=== PATIENT | male | born 1960 | race Caucasian/White ===

== ENCOUNTER 2025-02-08 05:54 | Observation (INO) ==
--- NOTE | 2025-01-10 10:43 | PAT Medication Instructions ---
Medication Instructions Date of Service January 10, 2025 Home Medications allopurinol 100 mg tablet 100 mg PO QAM apixaban 5 mg tablet 5 mg PO BID azelastine 205.5 mcg (0.15 %) nasal spray 1 spray intranasal DAILY celecoxib 200 mg capsule (Celebrex) 200 mg PO BID cyclobenzaprine 10 mg tablet 10 mg PO TID PRN muscle spasms diltiazem HCl 120 mg tablet 120 mg PO QAM duloxetine 60 mg capsule,delayed release 60 mg PO QAM gabapentin 300 mg capsule 300 mg PO BID hydrochlorothiazide 25 mg tablet 25 mg PO QAM hydrocortisone 1 % topical cream 1 applic topical BID levocetirizine 5 mg tablet 5 mg PO HS metformin 500 mg tablet 500 mg PO QAM olanzapine 2.5 mg tablet 2.5 mg PO HS olmesartan 40 mg tablet 40 mg PO QAM omeprazole 40 mg capsule,delayed release 40 mg PO QAM polyethylene glycol 3350 17 gram/dose oral powder (Miralax) 17 g PO DAILY PRN Constipation rosuvastatin 20 mg tablet 20 mg PO QAM semaglutide 1 mg/dose (4 mg/3 mL) subcutaneous pen injector 1 mg subcut Q7D tramadol 50 mg tablet 50 mg PO Q6H PRN Pain triamcinolone acetonide 0.1 % topical cream 1 applic topical DAILY PRN Skin Irritation ubrogepant 100 mg tablet (Ubrelvy) 100 mg PO UD PRN migraines ASK your surgeon for instructions celecoxib 200 mg capsule (Celebrex) 200 mg PO BID ASK your prescriber and surgeon apixaban 5 mg tablet 5 mg PO BID STOP 7 days prior to surgery semaglutide 1 mg/dose (4 mg/3 mL) subcutaneous pen injector 1 mg subcut Q7D STOP taking 24 hours before surgery hydrocortisone 1 % topical cream 1 applic topical BID triamcinolone acetonide 0.1 % topical cream 1 applic topical DAILY PRN Skin Irritation DO NOT take the morning of surgery hydrochlorothiazide 25 mg tablet 25 mg PO QAM metformin 500 mg tablet 500 mg PO QAM olmesartan 40 mg tablet 40 mg PO QAM polyethylene glycol 3350 17 gram/dose oral powder (Miralax) 17 g PO DAILY PRN Constipation Take morning of surgery With a small sip of water, OTHERWISE NOTHING TO EAT OR DRINK AFTER MIDNIGHT: allopurinol 100 mg tablet 100 mg PO QAM azelastine 205.5 mcg (0.15 %) nasal spray 1 spray intranasal DAILY cyclobenzaprine 10 mg tablet 10 mg PO TID PRN muscle spasms (if needed) diltiazem HCl 120 mg tablet 120 mg PO QAM duloxetine 60 mg capsule,delayed release 60 mg PO QAM gabapentin 300 mg capsule 300 mg PO BID omeprazole 40 mg capsule,delayed release 40 mg PO QAM rosuvastatin 20 mg tablet 20 mg PO QAM tramadol 50 mg tablet 50 mg PO Q6H PRN Pain (if needed) ubrogepant 100 mg tablet (Ubrelvy) 100 mg PO UD PRN migraines (if needed) Take evening before surgery cyclobenzaprine 10 mg tablet 10 mg PO TID PRN muscle spasms (if needed) gabapentin 300 mg capsule 300 mg PO BID levocetirizine 5 mg tablet 5 mg PO HS olanzapine 2.5 mg tablet 2.5 mg PO HS polyethylene glycol 3350 17 gram/dose oral powder (Miralax) 17 g PO DAILY PRN Constipation (if needed) tramadol 50 mg tablet 50 mg PO Q6H PRN Pain (if needed) ubrogepant 100 mg tablet (Ubrelvy) 100 mg PO UD PRN migraines (if needed) Other Notes If you have any questions please call us at [phone] or [phone] or [phone] or [phone]
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
[2025-02-08] MEDS: VANCOMYCIN HCL 2,000 MG in SODIUM CHLORIDE 0.9% 500 ML IV SCH (06:35)
[2025-02-08] MEDS: LACTATED RINGER'S 1,000 ML IV SCH (06:37)
[2025-02-08] MEDS: LR 60ML/HR IV SCH (06:37)
[2025-02-08] MEDS: GABAPENTIN 300 MG CAP PO SCH ×2 (06:38→20:16)
[2025-02-08] MEDS: ACETAMINOPHEN 500 MG TAB PO SCH (06:38)
[2025-02-08] MEDS: CeleBREX 200 MG CAP PO SCH (06:38)
[2025-02-08] MEDS ORDERED: ONDANSETRON INJ 2 MG/ML 2 ML VIAL ONE ×2 (08:39→09:51)
[2025-02-08] MEDS ORDERED: ATROPINE SULFATE 0.1 MG/ML 10ML SYR IV PRN (08:39)
[2025-02-08] MEDS ORDERED: DEXAMETHASONE SOD INJ 4 MG/ML VIAL ONE ×2 (08:39→08:43)
[2025-02-08] MEDS ORDERED: PROMETHAZINE HCL 6.25 MG in SODIUM CHLORIDE 0.9% 50 ML IV PRN (08:39)
[2025-02-08] MEDS ORDERED: LIDOCAINE 2% 2 ML VIAL/AMP(20MG/ML) INFIL ONE (08:39)
[2025-02-08] MEDS ORDERED: PROPOFOL IV EMULSION 10 MG/ML 20 ML VIAL IV ONE ×2 (08:39→08:43)
[2025-02-08] MEDS ORDERED: DROPERIDOL 5 MG/2 ML VIAL IV PRN (08:39)
[2025-02-08] MEDS ORDERED: ROCURONIUM BROMIDE 10 MG/ML 5 ML VIAL IV ONE (08:40)
[2025-02-08] MEDS ORDERED: HYDROmorphone INJ 2 MG/ML SYR/VIAL ONE (08:40)
[2025-02-08] MEDS ORDERED: MIDAZOLAM HCL 1 MG/ML 2ML VIAL ONE (08:40)
[2025-02-08] MEDS ORDERED: LARYING-O-JET KIT (LTA) ONE (08:40)
--- NOTE | 2025-02-08 08:55 | History & Physical Bridge Note ---
Date of Service February 08, 2025 History & Physical Bridge Note I have examined the patient, reviewed the History & Physical and in the interval since the performance of the History & Physical I have noted the following changes of clinical significance: no changes noted
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
[2025-02-08] MEDS: NovoLIN-R INSULIN PER UNIT CHARGE SC STA (09:04)
[2025-02-08] MEDS ORDERED: PHENYLEPHRINE 100MCG/ML 5ML SYR ONE (09:41)
[2025-02-08] MEDS: ceFAZolin 330 MG/ML 1 GM VIAL ONE ×2 (09:44→15:12)
[2025-02-08] MEDS: BUPIVACAINE/EPINEPHRINE 0.25% 1:200,000 30 ML VIAL ONE (09:45)
[2025-02-08] MEDS ORDERED: SUGAMMADEX SODIUM 200 MG/2 ML VIAL IV ONE (09:47)
[2025-02-08] MEDS ORDERED: ePHEDrine sulfate 50 MG/5 ML SYR ONE (10:03)
[2025-02-08] MEDS ORDERED: PHENYLEPHRINE HCL 10 MG/ML VIAL ONE (10:13)
--- NOTE | 2025-02-08 11:38 | Operative Report ---
Post Operative Report Pre & Post Diagnosis Operation Date: 02/08/25 09:05 Pre-Op Diagnosis: #1 lumbar spondylosis with radiculopathy #2 lumbar spinal stenosis #3 obesity Post-Op Diagnosis: Same I identified the patient and participated in the time-out.: Yes Procedure Operation Date: 02/08/25 09:05 Actual Procedures #1 lumbar decompression with bilateral medial facetectomies and foraminotomies L3-L4, L4-5 and L5-S1. #2 posterior spinal fusion L4-S1. #3 placed posterior instrumentation L4-S1 using Duncan. #4 interbody fusion L4-L5 L5-S1. #5 placem ent Spira 12 x 26 mm x 2 at L4-5 and 13 x 26 mm x 2 at L5-S1. #6 placement Koros, with Proteus bone graft to posterior gutters and os design interbody space. #7 application of versa wrap of the exposed dura. Surgeon Gordon Kumar, DO [employer] Cecilia Preston Estimated Blood Loss 400 Findings See Below The patient is 6 feet tall weighing over 131 kg with a BMI in excess of 39. Patient's body habitus did contribute to significant technical difficulty with positioning exposure and the procedure itself. This added at least 40% increased operative time. And recommending a modifier 22. Specimens None Indications This is a 64-year-old male who presents manage diagnosis is of increasing nonoperative care is here for surgical invention. Description of Procedure Patient was met with identified informed consent obtained. Patient was then taken to the operative suite underwent the patient placed in a prone position on the Rommel table atop the Wil frame. All bony promises well-padded eyes inspected to ensure no external pressure placed upon them. This point lumbar spine was prepped and draped in normal sterile fashion. Sharp dissection with the assistance of Bovie cautery was formed down to and exposing the lamina transverse processes of L for L5 and the sacral ala bilaterally. From caudal to cephalad fashion complete laminectomy of L5 was performed with bilateral medial facetectomies and foraminotomies followed by a complete laminectomy of L4 with bilateral medial facetectomies and foraminotomies and lastly partial laminectomy L3 with bilateral medial facetectomies to address all subarticular stenosis. Pedicle screws were then placed in L4-L5 and S1 levels bilaterally with assistance of fluoroscopy and appropriate size rods placed. By way of transforaminal approach on the left I discectomy of L5-S1 was performed endplates corrected to subcortical bleeding bone and a 13 x 26 mm Spira cage tapped into position. Then proceeded to the right transforaminal region L5-S1. Again discectomy performed. Endplates guided to subcortical bleeding bone. A second 13 x 26 mm Spira cage tapped into position. Number seated L4-[address] transforaminal approach and right a discectomy was performed. Endplates guided to subcortically bone and a 12 x 26 mm Spira cage tapped into position. Then proceeded to the left transforaminal region at L4-5. Again discectomy performed. Endplates curetted to subcortical bleeding bone and a second 12 x 26 mm Spira cage tapped in position. Please note all cages were packed with os design bone graft. The rods were then compressed locked into final position bilaterally. The transverse processes of L 4 L5 and the sacral ala burred to subcortically bone. Koros combined with Proteus bone graft was placed in the posterolateral gutters. Versa wrap placed of exposed dura. 15 round JULI drain inserted. The incision was then closed with 1 Vicryl fascia 2-0 Vicryl subcutaneously and 4-0 Monocryl for final skin closure. Steri-Strips and sterile dressing placed. Patient waken taken PACU stable condition. Please note Cecilia Preston was present of the entire procedure involved with patient positioning complex portions of the surgery and final skin closure. I attest to the content of the Intraoperative Record and any orders documented therein. Any exceptions are noted below.
[2025-02-08] MEDS: HYDROmorphone INJ 2 MG/ML SYR/VIAL IV PRN (12:36)
--- NOTE | 2025-02-08 13:45 | Fluoroscopy Report ---
INTRAOPERATIVE RADIOGRAPHS CLINICAL HISTORY: Lumbar spinal fusion surgery. Fluoro time: 16 seconds Ka,r: 16.23 mGy FINDINGS: 2 spot fluoroscopic views of the lumbar spine are presented. There has been discectomy at L 4-L5 and L5-S1 with laminectomy and posterior fusion at L4-S1. Interpedicular screws are present at a ll levels. The orthopedic hardware appears intact. IMPRESSION: Intraoperative images from lumbar spinal fusion surgery as above. Electronically signed by: Angel Schwartz M.D. 02/08/2025 1:44 PM
--- NOTE | 2025-02-08 14:58 | Anesthesiology Progress Note ---
Date of Service February 08, 2025 Anesthesia Post Procedure Vital Signs Vital Signs: Temp Pulse Pulse Resp BP Pulse Ox O2 Del Method 02/08/25 14:40 77 12 141/60 H 96 Nasal Cannula 02/08/25 14:10 76 13 139/70 95 Nasal Cannula 02/08/25 13:40 69 12 135/71 94 Nasal Cannula 02/08/25 13:25 74 12 122/73 95 Nasal Cannula 02/08/25 13:10 71 12 136/70 94 Nasal Cannula 02/08/25 12:55 71 12 134/71 98 Nasal Cannula 02/08/25 12:40 70 12 142/72 H 96 Nasal Cannula 02/08/25 12:30 36.4 C L 74 12 133/79 96 Nasal Cannula 02/08/25 12:20 76 12 157/80 H 94 Nasal Cannula 02/08/25 12:10 73 12 160/78 H 100 Oxymask 02/08/25 12:00 67 12 145/78 H 99 Oxymask 02/08/25 11:50 36.4 C L 70 16 150/81 H 99 Oxymask 02/08/25 06:10 36.9 C 76 20 148/91 H 96 Room Air O2 Flow Rate 02/08/25 14:40 2 02/08/25 14:10 2 02/08/25 13:40 2 02/08/25 13:25 2 02/08/25 13:10 2 02/08/25 12:55 2 02/08/25 12:40 2 02/08/25 12:30 2 02/08/25 12:20 2 02/08/25 12:10 9 02/08/25 12:00 9 02/08/25 11:50 9 02/08/25 06:10 Pain Intensity Back: Pain Intensity: 2 Transfer of Care Handoff Completed per policy Notes Mental Status: alert / awake / arousable and participated in evaluation Nausea / Vomiting: adequately controlled Pain: adequately controlled Airway Patency, RR, SpO2: stable & adequate BP & HR: stable & adequate Hydration State: stable & adequate Anesthetic Complications: no major complications apparent and Pt Satisfied with anesthetic care
[2025-02-08] MEDS ORDERED: FAMOTIDINE 20 MG TAB PO PRN (15:00)
[2025-02-08] MEDS ORDERED: ACETAMINOPHEN 1,000 MG/100 ML VIAL IV PRN (15:00)
[2025-02-08] MEDS ORDERED: LORazepam 0.5 MG TAB PO PRN (15:00)
[2025-02-08] MEDS ORDERED: ONDANSETRON 4 MG OD TAB PO PRN (15:00)
[2025-02-08] MEDS ORDERED: LORazepam Inj 0.5 MG in SYRINGE 0.25 ML IV PRN (15:00)
[2025-02-08] MEDS ORDERED: HYDROmorphone INJ 0.5 MG/0.5 ML SYR IV PRN (15:00)
[2025-02-08] MEDS ORDERED: ONDANSETRON INJ 2 MG/ML 2 ML VIAL IV PRN (15:00)
[2025-02-08] MEDS ORDERED: PROMETHAZINE 12.5 MG/50.5 ML BAG IV PRN (15:00)
[2025-02-08] MEDS ORDERED: PHARMACY GLYCEMIC MGMT CONSULT PRN (15:00)
[2025-02-08] MEDS ORDERED: SOD PHOSPHATE/SOD BIPHOSPHATE ENEMA 132 ML BTL PR PRN (15:00)
[2025-02-08] MEDS ORDERED: HYDROmorphone INJ 1 MG/ML SYRINGE IV PRN (15:00)
[2025-02-08] MEDS ORDERED: ALUMINUM/MAGNESIUM SUSP 30 ML UDC PO PRN (15:00)
[2025-02-08] MEDS ORDERED: NALOXONE HCL 0.4 MG/1 ML VIAL/CARP IV PRN (15:00)
[2025-02-08] MEDS ORDERED: DO NOT ADMINISTER PNEUMOCOCCAL VACCINE PRN (15:00)
[2025-02-08] MEDS ORDERED: diphenhydrAMINE Capsule 25 MG CAP PO PRN (15:00)
[2025-02-08] MEDS ORDERED: DO NOT ADMINISTER FLU VACCINE PRN (15:00)
[2025-02-08] MEDS ORDERED: MAGNESIUM HYDROXIDE SUSP 30 ML UDC PO PRN (15:00)
[2025-02-08] MEDS ORDERED: METOCLOPRAMIDE HCL INJ 5 MG/ML 2 ML VIAL IV PRN (15:00)
[2025-02-08] MEDS: NovoLIN-R INSULIN PER UNIT CHARGE ONE (15:12)
[2025-02-08] MEDS: FLOSEAL HEMOSTATIC MATRIX 10ML TOP ONE (15:12)
[2025-02-08] MEDS: INSULIN HUMAN REGULAR PER UNIT 5 UNITS in SYRINGE 4.95 ML IV ONE (15:12)
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
[2025-02-08] MEDS: INSULIN HUMAN REGULAR PER UNIT 5 UNITS in SYRINGE 0 ML IV STA (15:25)
[2025-02-08] MEDS: SODIUM CHLORIDE 0.9% 1,000 ML IV SCH (16:44)
[2025-02-08] MEDS: ACETAMINOPHEN 500 MG TAB PO PRN (16:44)
[2025-02-08] MEDS ORDERED: ALBUTEROL 0.083% NEBU SOLN 3 ML VIAL NEB PRN (17:26)
[2025-02-08] MEDS: INSULIN ASPART PER UNIT CHARGE SC SCH (17:48)
[2025-02-08] MEDS: LANTUS PER UNIT CHARGE SC ONE ×2 (17:49→20:14)
[2025-02-08] MEDS: DOCUSATE SODIUM/SENNA 50/8.6MG TAB PO SCH (20:15)
[2025-02-08] MEDS: OLANZAPINE 2.5 MG TAB PO SCH (20:16)
[2025-02-08] MEDS: CETIRIZINE HCL 10 MG TABLET PO SCH (20:16)
[2025-02-09] MEDS: INSULIN ASPART PER UNIT CHARGE SC SCH (00:09)
[2025-02-09] MEDS: POLYETHYLENE (MIRALAX) 17 GM PACK PO SCH (05:50)
[2025-02-09 06:12] LABS: Hematocrit (blood only) 35.8 % (42.0-52.0); Hemoglobin 12.5 g/dL (14.0-18.0); Immature Granulocytes # (auto) 0.08 K/uL (0.01-0.20); Immature Granulocytes % (auto) 0.5 %; Mean Corpuscular Hemoglobin 29.1 pg (25.0-34.0); Mean Corpuscular Volume 83.3 fL (80.0-100.0); Platelet Count 230 K/uL (130-400); RDW Standard Deviation 37.4 fL (36.4-46.3); Red Blood Count 4.30 M/uL (4.70-6.10); White Blood Count 15.88 K/ul (4.8-10.8)
[2025-02-09 06:31] LABS: Anion Gap 9.0 (3-11); Blood Urea Nitrogen 21.0 mg/dl (6-23); Calcium 8.5 mg/dl (8.6-10.3); Carbon Dioxide 27.0 mmol/L (21-32); Chloride 103.0 mmol/L (98-107); Creatinine Clr Calc Pharmacy 129.1 ml/min; Glucose 201.0 mg/dl (70-99(Fasting)); Potassium 3.6 mmol/L (3.5-5.1); Sodium 139.0 mmol/L (136-145)
[2025-02-09] MEDS: LOSARTAN POTASSIUM 50 MG TAB PO SCH (08:01)
[2025-02-09] MEDS: ROSUVASTATIN CALCIUM 20 MG TAB PO SCH (08:01)
[2025-02-09] MEDS: dexAMETHasone 8 MG in SYRINGE 0 ML IV SCH (08:02)
[2025-02-09] MEDS: AZELASTINE HCL 0.1% NASAL 200 SPRAYS/27,400 MCG BTL SCH (08:04)
[2025-02-09] MEDS: LANTUS PER UNIT CHARGE SC SCH (08:05)
--- NOTE | 2025-02-09 08:33 | Orthopedic Progress Note ---
Date of Service February 09, 2025 Assessment & Plan (1) Multilevel lumbosacral spondylosis with radiculopathy: Plan: At this time we will initiate physical therapy monitor his JULI output hopefully discharge in the next few days Admission and Anticipated Discharge Date Admission Date: February 08, 2025 Subjective Patient's back pain is controlled. Patient has been to bathroom several times without issue. Physical Exam Physical Exam: Patient comfortable. Good strength testing. Results & Data Vital Signs (Past 12 Hours) Vital Signs Temp Pulse Resp BP Pulse Ox O2 Del Method 02/09/25 07:30 36.5 C 82 16 150/78 H 96 Room Air 02/09/25 03:14 36.4 C L 84 17 145/78 H 92 Room Air 02/08/25 22:33 36.5 C 80 18 136/76 93 Room Air Queries Orthopedic Spine Obesity: Yes
[2025-02-09] MEDS ORDERED: hydroCHLOROthiazide 25 MG TAB PO SCH (09:00)
--- NOTE | 2025-02-09 12:32 | Hospitalist Progress Note ---
Date of Service February 09, 2025 Assessment & Plan (1) S/P spinal surgery: (2) Multilevel lumbosacral spondylosis with radiculopathy: Plan: This is a 64-year-old male with PMH type 2 diabetes, paroxysmal atrial fibrillation on Eliquis, migraine headache dyslipidemia and other medical problems listed below who is postop day 0 decompression and fusion surgery by Dr. Kumar. Acute blood loss anemia s/p lumbar decompression with bilateral medial facetectomies and foraminotomies L3-L4, L4-5 and L5-S1 and posterior spinal fusion L4-S1.. by Dr. Kumar on 02/09/2025 Per ortho for pain control, wound care and activities Continue incentive spirometry, PT/OT when appropriate Monitor H&H (pre-op hgb 14.8, EBL 400ml). Hb of 12.5g/dl in post-op period Eliquis for A fib has been held since 02/04, resume as appropriate per ortho (3) Diabetes mellitus, type 2: Plan: A1c 8.5 in Dec 2024 Hold home agents SSI while in-patient Glycemic consult placed per primary BSG AC HS (4) Hx of migraines: Plan: Continue regimen of duloxetine, olanzapine HS. Also receives Ubrelvy and botox injections (5) Atrial fibrillation: Plan: Dx 10/2022, follows with Dr. Cricket Fernandez/[facility] cardio Eliquis held as above - resume per ortho recommendation Continue Diltiazem (6) HTN (hypertension): Plan: Normotensive post op. Continue olmesartan , hold hctz for now (7) History of asthma: Plan: Allergy-induced per patient, not taking an inhaler. Continue antihistamine, incentive spirometry. Adding PRN albuterol neb for SOB/wheezing (8) GERD (gastroesophageal reflux disease): Plan: Continue PPI (9) HLD (hyperlipidemia): Plan: Continue statin DVT Ppx: SCDs per primary service Code status: FULL PCP: [facility] Dispo: Admitted to med/surg, dispo per primary .Please note the above document was generated using voice recognition software. It may contain grammatical, syntax or spelling errors. Any formal questions or concerns about the content, text or information contained within the body of this dictation should be directly addressed to the provider for clarification Admission and Anticipated Discharge Date Admission Date: February 08, 2025 Subjective Patient seen and examined at bedside. He is sitting up on a chair at the side of the bed. Reports that he is feeling better. Denies any pain or discomfort. Review of Systems Review of Systems: All systems reviewed & are unremarkable except as noted in Subjective Physical Exam Physical Exam: General Appearance: WD/WN, vitals as above, NAD, sitting up in bedside chair, conversing easily Head: normocephalic, atraumatic Eyes: + L eye glass ENT: external ear and nose normal Neck: normal visual inspection Respiratory: normal respiratory effort, clear breath sounds Cardiovascular: RRR, normal peripheral pulses, no BLE edema Abdomen/GI: normal bowel sounds, soft, nontender Extremities/Musculoskeletal: no cyanosis or clubbing, extremities motor strength 5/5 Neurologic: CN's II-XI intact bilaterally and moves all extremities Psychiatric: A+Ox3, euthymic affect Skin: no rashes, normal color, warm/dry Results & Data Results & Data Vital Signs (Past 12 Hours) Vital Signs Temp Pulse Resp BP Pulse Ox O2 Del Method 02/09/25 07:30 36.5 C 82 16 150/78 H 96 Room Air 02/09/25 03:14 36.4 C L 84 17 145/78 H 92 Room Air
--- NOTE | 2025-02-09 13:46 | Pharmacy Report ---
Pharmacy Glycemic Short Note 2 - Date of Service February 09, 2025 - Glycemic Short BSG Results (Last 24 hours): 02/08/25 02/08/25 02/08/25 16:34 19:42 19:46 Glucose POC Glucose 235 H 323 H* 275 H 02/08/25 02/08/25 02/09/25 20:03 23:59 04:04 Glucose 291 H POC Glucose 261 H 202 H 02/09/25 02/09/25 02/09/25 05:33 07:51 11:27 Glucose 201 H POC Glucose 203 H 279 H OUTPATIENT ANTIDIABETIC REGIMEN: * metformin ER 500mg PO daily * glipizide ER 5mg PO daily * semaglutide 1mg SQ weekly HbA1c: 8.5% on 01/13/25 ASSESSMENT: * Sean is a 64 year old male who was admitted yesterday for L4-S1 decompression and fusion (POD #1). Pharmacy was consulted for glycemic management postop. * BSG preop was 232mg/dL and postop was 235mg/dL. He received 12mg iv dexamethasone preop. A weight based bolus insulin regimen with a stress of 2 was started and a total of 15 units of Lantus was given (10 + additional 5 units). The provider also ordered 5mg iv Regular insulin x1. * BSG was still > 200mg/dL at HS so bolus insulin regimen was tightened. * Fasting BSG was 203mg/dL this morning and he was ordered dexamethasone 8mg iv daily x 3 days. Lantus 20units SQ daily was ordered. Will continue bolus insulin without change for now. PLAN FOR INPATIENT GLYCEMIC CONTROL: * Hold outpatient diabetes medications * Basal insulin * Lantus 20 units SQ daily * Bolus insulin * NovoLog per scale ACHS or Q6hrs while NPO * Goal Range: Low 120 mg/dL - High 160 mg/dL * Correction Factor: 15 mg/dL/unit * Nutritional / Prandial insulin per carb ratio of 1 unit per 5 grams CHO consumed
[2025-02-10] MEDS: INSULIN ASPART PER UNIT CHARGE SC SCH (00:23)
--- NOTE | 2025-02-10 08:06 | Orthopedic Progress Note ---
Date of Service February 10, 2025 Assessment & Plan (1) Multilevel lumbosacral spondylosis with radiculopathy: Plan: Sean is POD#2 s/p lumbar decompression/fusion L4-S1. He is doing well. Continue physical therapy and ambulation. DVT prophylaxis is TEDS/SCDS. Maintain JULI drain. Continue with pain control. Anticipate discharge home tomorrow. Admission and Anticipated Discharge Date Admission Date: February 08, 2025 Subjective Sean is POD #2 s/p L4-S1 decompression/fusion. He is doing well. Leg pain has resolved. Back pain is controlled. JULI output last shift was 20cc. Yesterday in physical therapy he was able to ambulate 325'. No other complaints Review of Systems Review of Systems: All systems reviewed & are unremarkable except as noted in HPI & below Physical Exam Physical Exam: in restoom A&Ox3 lumbar dressing C/D/I strength intact B/L LE Results & Data Vital Signs (Past 12 Hours) Vital Signs Temp Pulse Resp BP Pulse Ox O2 Del Method 02/09/25 22:25 36.6 C 77 16 157/62 H 95 Room Air Queries Orthopedic Spine Obesity: Yes
[2025-02-10] MEDS: LANTUS PER UNIT CHARGE SC SCH (08:26)
--- NOTE | 2025-02-10 12:17 | Pharmacy Report ---
Pharmacy Glycemic Short Note 2 - Date of Service February 10, 2025 - Glycemic Short BSG Results (Last 24 hours): 02/09/25 02/09/25 02/10/25 16:41 20:17 00:16 POC Glucose 303 H* 248 H 199 H 02/10/25 02/10/25 02/10/25 04:04 07:25 11:17 POC Glucose 191 H 200 H 225 H OUTPATIENT ANTIDIABETIC REGIMEN: * metformin ER 500mg PO daily * glipizide ER 5mg PO daily * semaglutide 1mg SQ weekly HbA1c: 8.5% on 01/13/25 ASSESSMENT: 02/10/25: * Blood sugars elevated on POD #1 due to inadequate basal/bolus insulin regimen * Will give ~0.4 unit/kg of adjusted body weight of basal today and tighten to full weight-based stress of 3 Novolog today * Last dose of dexamethasone 8 mg IV daily on 02/11/25 02/09/25: * Sean is a 64 year old male who was admitted yesterday for L4-S1 decompression and fusion (POD #1). Pharmacy was consulted for glycemic management postop. * BSG preop was 232mg/dL and postop was 235mg/dL. He received 12mg iv dexamethasone preop. A weight based bolus insulin regimen with a stress of 2 was started and a total of 15 units of Lantus was given (10 + additional 5 units). The provider also ordered 5mg iv Regular insulin x1. * BSG was still > 200mg/dL at HS so bolus insulin regimen was tightened. * Fasting BSG was 203mg/dL this morning and he was ordered dexamethasone 8mg iv daily x 3 days. Lantus 20units SQ daily was ordered. Will continue bolus insulin without change for now. PLAN FOR INPATIENT GLYCEMIC CONTROL: * Hold outpatient diabetes medications * Basal insulin * Lantus 40 units SQ daily w/ IV dexamethasone (~0.4 unit/kg) * Bolus insulin * NovoLog per scale ACHS or Q6hrs while NPO * Goal Range: Low 110 mg/dL - High 140 mg/dL * Correction Factor: 10 mg/dL/unit * Nutritional / Prandial insulin per carb ratio of 1 unit per 4 grams CHO consumed
--- NOTE | 2025-02-10 12:45 | Hospitalist Progress Note ---
Date of Service February 10, 2025 Assessment & Plan (1) S/P spinal surgery: (2) Multilevel lumbosacral spondylosis with radiculopathy: Plan: This is a 64-year-old male with PMH type 2 diabetes, paroxysmal atrial fibrillation on Eliquis, migraine headache dyslipidemia and other medical problems listed below who is postop day 0 decompression and fusion surgery by Dr. Kumar. Acute blood loss anemia s/p lumbar decompression with bilateral medial facetectomies and foraminotomies L3-L4, L4-5 and L5-S1 and posterior spinal fusion L4-S1.. by Dr. Kumar on 02/09/2025 Per ortho for pain control, wound care and activities Continue incentive spirometry, PT/OT when appropriate Monitor H&H (pre-op hgb 14.8, EBL 400ml). Hb of 12.5g/dl in post-op period Eliquis for A fib has been held since 02/04, resume as appropriate per ortho (3) Diabetes mellitus, type 2: Plan: A1c 8.5 in Dec 2024 Hold home agents SSI while in-patient Glycemic consult placed per primary BSG AC HS (4) Hx of migraines: Plan: Continue regimen of duloxetine, olanzapine HS. Also receives Ubrelvy and botox injections (5) Atrial fibrillation: Plan: Dx 10/2022, follows with Dr. Cricket Fernandez/[facility] cardio Eliquis held as above - resume per ortho recommendation Continue Diltiazem (6) HTN (hypertension): Plan: Normotensive post op. Continue olmesartan , hold hctz for now (7) History of asthma: Plan: Allergy-induced per patient, not taking an inhaler. Continue antihistamine, incentive spirometry. Adding PRN albuterol neb for SOB/wheezing (8) GERD (gastroesophageal reflux disease): Plan: Continue PPI (9) HLD (hyperlipidemia): Plan: Continue statin DVT Ppx: SCDs per primary service Code status: FULL PCP: [facility] Dispo: Admitted to med/surg, dispo per primary .Please note the above document was generated using voice recognition software. It may contain grammatical, syntax or spelling errors. Any formal questions or concerns about the content, text or information contained within the body of this dictation should be directly addressed to the provider for clarification Admission and Anticipated Discharge Date Admission Date: February 08, 2025 Subjective Patient seen and examined at bedside. He reports that he did not get much sleep last night; reports some tiredness. He denies fever, chills, chest pain, shortness of breath or abdominal pain. Review of Systems Review of Systems: All systems reviewed & are unremarkable except as noted in Subjective Physical Exam Physical Exam: General Appearance: WD/WN, vitals as above, NAD, sitting up in bedside chair, conversing easily Head: normocephalic, atraumatic Eyes: + L eye glass ENT: external ear and nose normal Neck: normal visual inspection Respiratory: normal respiratory effort, clear breath sounds Cardiovascular: RRR, normal peripheral pulses, no BLE edema Abdomen/GI: normal bowel sounds, soft, nontender Extremities/Musculoskeletal: no cyanosis or clubbing, extremities motor strength 5/5 Neurologic: CN's II-XI intact bilaterally and moves all extremities Psychiatric: A+Ox3, euthymic affect Skin: no rashes, normal color, warm/dry Results & Data Results & Data Vital Signs (Past 12 Hours) Vital Signs Temp Pulse Resp BP Pulse Ox O2 Del Method 02/10/25 08:11 36.8 C 81 19 152/77 H 95 Room Air
[2025-02-10 23:06] VITALS: O2SAT 96
[2025-02-11 07:59] VITALS: RESP 12; TEMP 97.9
--- NOTE | 2025-02-11 09:39 | Discharge Summary ---
Date of Service February 11, 2025 Admission HPI Per Admitting Provider This is a 64-year-old male who presents with chronic persistent back and leg pain and failing course of nonoperative care is here for surgical invention. Principal Diagnosis Lumbar spondylosis with radiculopathy Discharge Data Allergies Allergy/AdvReac Type Severity Reaction Status Date / Time COVID-19 (SARS-CoV-2) Allergy Hypertension, Verified 02/08/25 05:57 vaccine, mychal headaches, "caused T2DM" Penicillins Allergy Unknown Verified 02/08/25 05:57 Consultations 02/08/25 15:00 Consult Hospitalist Routine Procedures Performed Operation Date: 02/08/25 09:05 Actual Procedures p L4-S1 Decompression and Fusion(Not Applicable) - Gordon Kumar DO Ordered Studies 02/08/25 09:05 FL lumbar spine 2-3V Routine Hospital Course (1) Multilevel lumbosacral spondylosis with radiculopathy: Patient underwent multilevel lumbar decompression fusion tolerated this well was taken to orthopedic for postoperative. Postop he progressed appropriately. Marked improvement of his leg symptoms of back pain. JULI drain decreasing. Excellent strength testing. Pain well-controlled. Subsidy discharged home. Discharge orders and instructions from the chart for further review. Total Time Total Time Spent Total Time Spent (In Minutes): 20 minutes Discharge Plan Discharge Items Patient Disposition: Home - Home Health Services Reason For Visit: Lumbar Foraminal Stenosis Discharge Diagnosis: Lumbar spondylosis with radiculopathy Activity: As commented below Non-emergency contact: Primary Care Provider Call non-emergency contact if: you have any medication questions Follow-up/Referrals: PCP,NO [Physician] - Diet: Regular Addtl Attending Provider Instructions: ACTIVITY RECOMMENDATIONS: SELF CARE INSTRUCTIONS AFTER THORACIC/LUMBAR FUSIONS 1. You may walk to your tolerance. It is good exercise for your legs and back. Expect some back and intermittent leg aches and pains. 2. You may perform "counter-top" level activities (make a sandwich, demetrio with a project, etc.). 3. No bending or lifting of more than 10 pounds or back twisting of any nature (roll like a log when turning in bed). 4. You may ride in a car for 20-30 minutes at a time. No driving until after your first visit with your doctor. 5. Frequent changes of position and restricting sitting to 30 minutes at a time will help limit the amount of back spasms and stiffness you may experience. 6. You may discontinue the use of ambulatory aids (cane, crutches, etc.) once your strength and confidence allow. 7. You may multimedia coordinator the shower and let water strike your incision when you arrive home at least once daily. Do not take a tub bath, sit in a hot tub or go into a swimming pool until after your first recheck in the office. 8. You may resume previous diet. SPECIAL CARE INSTRUCTIONS: VERY IMPORTANT TO READ AND REVIEW A. Your surgical incision has been closed with a cosmetic suture under the skin that will dissolve in about 6 weeks. In 14 days, you can use a pair of clean scissors and cut the suture that is left outside of the skin at the ends of your incision. 1. The small skin tapes can be removed 7 days after surgery if they have not fallen off by that point. 2. You may keep the wound open to air as much as possible to promote healing after post-op day number 5 unless told otherwise by your doctor. 3. If you think the wound looks like it is becoming infected (redness or worsening drainage) and/or you are experiencing fever, chill or worsening back pain and muscle spasms, contact the office so that we may evaluate you as soon as possible. B. Complications are uncommon, but please contact us if you have any signs or symptoms of: 1. wound infection (fever higher than 102.5 degrees F, redness, separation of wound, drainage, or increasing pain from the incision) 2. blood clots in legs (pain, swelling, redness and warmth in legs) 3. urinary tract infection (fever higher than 102.5 degrees F, burning upon urination or increased frequency of urination) 4. nerve problems (inability to walk on your toes or heels, numbness, loss of bowel or bladder control) 5. any other symptoms that concern you C. Please call the office at if you have any concerns or questions about your operation or recovery. D. No smoking! Smoking drastically decreases the chance of a solid fusion. E. Do not take any anti-inflammatory medications (Indocin, Advil, Motrin, Aspirin, Naprosyn, etc.) as these may inhibit the chance of a solid fusion. Tylenol is okay to take for pain. MANAGING PAIN AFTER SPINAL SURGERY 1. Narcotic medication is intended for short-term use and will be provided for surgical pain. Surgical pain usually lasts for a period of 4-6 weeks. Narcotic medication includes Percocet, Vicodin, Darvocet, Tylenol #3 or Lortab. 2. Longer-term pain is more appropriately treated with non-narcotic medication such as Tylenol ES. 3. Muscle spasm is not appropriately treated with narcotics. Muscle relaxers such as Soma, Flexeril or Skelaxin can be used along with Tylenol ES. 4. Remember that we all live with some "aches and pains". This is not unusual or uncommon after an injury or as we get older. a. Back pain is expected and may include muscle spasms for 4 to 6 weeks after surgery. The pain should gradually improve. If the pain worsens for no apparent reason, please contact the office. b. Intermittent leg pain may also be experienced and should not be concerned about unless it worsens for no apparent reason. If so, please contact the office. 5. We will provide appropriate medication within the normal guidelines of their prescribed use. We will also be very cautious and aware of potential abuse and extended duration of patients' medication needs. a. Pain medications are for your comfort and to assist with sleep and rest so that the tissue can heal. They are not provided in order to return to normal activity and should not be used through the day. To do so or worsening pain at night can result from ongoing tissue damage and development of tolerance to the prescribed medicine. 6. Please allow 2-3 days to process refills. Prescriptions will not be mailed but must be picked up at the office. FOLLOW UP VISIT: Keep your scheduled follow-up appointment. Any questions, please call the office at . Pending Studies at Discharge: No Stand-Alone Forms: My [employer], Smoking Cessation Medications and DC Order Prescriptions: New tramadol 50 mg tablet 50 mg PO Q6H PRN (Reason: pain, moderate) Qty: 30 0RF oxycodone 5 mg tablet 5 mg PO Q6H PRN (Reason: pain) Qty: 30 0RF Rx Instructions: Oxycodone for severe pain tramadol for moderate pain Continued celecoxib [Celebrex] 200 mg Capsule 200 mg PO BID cyclobenzaprine 10 mg Tablet 10 mg PO TID PRN (Reason: muscle spasms) metformin 500 mg Tablet 500 mg PO QAM allopurinol 100 mg Tablet 100 mg PO QAM olanzapine 2.5 mg Tablet 2.5 mg PO HS omeprazole 40 mg Capsule,Delayed Release(Dr/Ec) 40 mg PO QAM tramadol 50 mg Tablet 50 mg PO Q6H PRN (Reason: Pain) triamcinolone acetonide 0.1 % Cream 1 applic TOPICAL DAILY PRN (Reason: Skin Irritation) diltiazem HCl 120 mg Tablet 120 mg PO QAM hydrocortisone 1 % Cream 1 applic TOPICAL BID gabapentin 300 mg Capsule 300 mg PO BID hydrochlorothiazide 25 mg Tablet 25 mg PO QAM polyethylene glycol 3350 [Miralax] 17 gram/dose Powder 17 g PO DAILY PRN (Reason: Constipation) olmesartan 40 mg Tablet 40 mg PO QAM rosuvastatin 20 mg Tablet 20 mg PO QAM duloxetine 60 mg Capsule,Delayed Release(Dr/Ec) 60 mg PO QAM levocetirizine 5 mg Tablet 5 mg PO HS azelastine 205.5 mcg (0.15 %) Mallard,Non-Aerosol 1 spray INTRANASAL DAILY Rx Instructions: administer into each nostril apixaban 5 mg Tablet 5 mg PO BID Ubrelvy 100 mg Tablet 100 mg PO UD PRN (Reason: migraines) semaglutide 1 mg/dose (4 mg/3 mL) Pen Injector 1 mg SUBCUT Q7D Patient Comments: Discharge Orders: Discharge Order (Routine); Ordered 02/11/25 Ordered By: Gordon Kumar Admission Data Admit Date/Time: 02/08/25 11:44 Attending Provider: Gordon Kumar Admit Provider: Gordon Kumar Primary Care Provider: Aarti Dalton Other Providers: Dam[facility]; Megan Weber; Venancio Camp
[2025-02-11 11:08] VITALS: BP 145/64; PULSE 62
--- NOTE | 2025-02-11 11:57 | Hospitalist Progress Note ---
Date of Service February 11, 2025 Assessment & Plan (1) S/P spinal surgery: (2) Multilevel lumbosacral spondylosis with radiculopathy: Plan: This is a 64-year-old male with PMH type 2 diabetes, paroxysmal atrial fibrillation on Eliquis, migraine headache dyslipidemia and other medical problems listed below who is postop day 0 decompression and fusion surgery by Dr. Kumar. Acute blood loss anemia s/p lumbar decompression with bilateral medial facetectomies and foraminotomies L3-L4, L4-5 and L5-S1 and posterior spinal fusion L4-S1 by Dr. Kumar on 02/09/2025 Per ortho for pain control, wound care and activities Continue incentive spirometry, PT/OT when appropriate Monitor H&H (pre-op hgb 14.8, EBL 400ml). Hb of 12.5g/dl in post-op period Eliquis for A fib has been held since 02/04, resume as appropriate per ortho (3) Diabetes mellitus, type 2: Plan: A1c 8.5 in Dec 2024 Hold home agents SSI while in-patient Glycemic consult placed per primary BSG AC HS (4) Hx of migraines: Plan: Continue regimen of duloxetine, olanzapine HS. Also receives Ubrelvy and botox injections (5) Atrial fibrillation: Plan: Dx 10/2022, follows with Dr. Cricket Fernandez/[facility] cardio Eliquis held as above - resume per ortho recommendation Continue Diltiazem (6) HTN (hypertension): Plan: Normotensive post op. Continue olmesartan , hold hctz for now (7) History of asthma: Plan: Allergy-induced per patient, not taking an inhaler. Continue antihistamine, incentive spirometry. Adding PRN albuterol neb for SOB/wheezing (8) GERD (gastroesophageal reflux disease): Plan: Continue PPI (9) HLD (hyperlipidemia): Plan: Continue statin DVT Ppx: SCDs per primary service Code status: FULL PCP: [facility] Dispo: Admitted to med/surg, dispo per primary .Please note the above document was generated using voice recognition software. It may contain grammatical, syntax or spelling errors. Any formal questions or concerns about the content, text or information contained within the body of this dictation should be directly addressed to the provider for clarification Admission and Anticipated Discharge Date Admission Date: February 08, 2025 Subjective Patient seen and examined at bedside. Comfortable; not in distress. Denies fever, chills, chest pain, shortness of breath, abdominal pain or urinary symptoms. No significant overnight events Review of Systems Review of Systems: All systems reviewed & are unremarkable except as noted in Subjective Physical Exam Physical Exam: General Appearance: WD/WN, vitals as above, NAD, sitting up in bedside chair, conversing easily Head: normocephalic, atraumatic Eyes: + L eye glass ENT: external ear and nose normal Neck: normal visual inspection Respiratory: normal respiratory effort, clear breath sounds Cardiovascular: RRR, normal peripheral pulses, no BLE edema Abdomen/GI: normal bowel sounds, soft, nontender Extremities/Musculoskeletal: no cyanosis or clubbing, extremities motor strength 5/5 Neurologic: CN's II-XI intact bilaterally and moves all extremities Psychiatric: A+Ox3, euthymic affect Skin: no rashes, normal color, warm/dry Results & Data Results & Data Vital Signs (Past 12 Hours) Vital Signs Temp Pulse Pulse Resp BP BP Pulse Ox 02/11/25 11:07 36.6 C 60 62 12 146/78 H 145/64 H 96 02/11/25 10:55 02/11/25 07:50 36.6 C 60 12 146/78 H 96 O2 Del Method 02/11/25 11:07 02/11/25 10:55 Room Air 02/11/25 07:50 Room Air
== END 2025-02-11 11:36 | disposition home health service (06) | DRG 427 ==
LOC: ASU 05:54 → INTOOBSV 11:44 → PACUINP 11:44 → 3E 14:52